=== PATIENT | female | born 1955 | race Caucasian/White ===

== ENCOUNTER 2019-08-17 09:45 | Emergency (ER) | payer MEDICARE, OTHER ==
[2019-08-17 10:13] VITALS: BP 149/81; BMI 32.5
[2019-08-17] MEDS ORDERED: ACETAMINOPHEN 325 MG TABLET (FP) PO ONE (10:19)
[2019-08-17 11:01] VITALS: PULSE 112; TEMP 99.3
--- NOTE | 2019-08-17 11:01 | PDOC ---
History of Present Illness - General Chief Complaint: Cold Symptoms Stated Complaint: SORE THROAT/COUGH/WEAKNESS Time Seen by Provider: 08/17/19 10:10 History Source: Patient Exam Limitations: No Limitations Past History - Past Medical History Allergies/Adverse Reactions: Allergies Allergy/AdvReac Type Severity Reaction Status Date / Time No Known Allergies Allergy Verified 08/17/19 10:01 Home Medications: Ambulatory Orders NK [No Known Home Medication] 08/17/19 COPD: No - Psycho Social/Smoking Cessation Hx Smoking History: Never smoked *Physical Exam - Vital Signs Last Vital Signs Temp Pulse Resp BP Pulse Ox 99 F 125 H 18 149/81 99 08/17/19 10:03 08/17/19 10:03 08/17/19 10:03 08/17/19 10:03 08/17/19 10:03 - Physical Exam General Appearance: No: Apparent Distress HEENT: positive: Normal ENT Inspection. negative: Muffled/Hoarse voice, Pharyngeal Erythema, Tonsillar Exudate, Tonsillar Erythema, Nasal Congestion, Rhinorrhea, Sinus Tenderness Respiratory/Chest: positive: Lungs Clear, Normal Breath Sounds. negative: Respiratory Distress Cardiovascular: positive: Regular Rhythm, Regular Rate, S1, S2. negative: Murmur Gastrointestinal/Abdominal: positive: Normal Bowel Sounds, Soft. negative: Tender, Distended, Guarding, Rebound Extremity: positive: Other (FROM of R shoulder, R elbow and R wrist, no deformity, no ecchymosis) Neurologic: positive: Alert, Normal Mood/Affect ED Treatment Course - RADIOLOGY Radiology Studies Ordered: Category Date Time Status ELBOW-RIGHT [RAD] Stat Radiology 08/17/19 10:18 Completed - Medications Given in the ED: ED Medications Discontinued Medications Generic Name Dose Route Start Last Admin Trade Name Freq PRN Reason Stop Dose Admin Acetaminophen 975 mg 08/17/19 10:19 08/17/19 10:29 Tylenol - PO 08/17/19 10:20 975 mg ONCE ONE Administration Medical Decision Making - Medical Decision Making 64 y/o F with no sig pmh presents with dry cough, rhinorrhea, throat pain from yesterday. Denies fever, sob, cp, abd pain, n/v/d, urinary complaints. Patient' s grandson also with viral URI sxs. Did not take any antipyretics today. Patient also had mechanical fall yesterday; patient slipped on something in the dark in the house and fell on R side; is c/o R elbow pain. Denies head/neck trauma, LOC, other injuries Patient appears well - likely viral URI S/P mechanical fall - R elbow xray negative Stable for dc 08/17/19 10:55 Discharge - Discharge Information Problems reviewed: Yes Clinical Impression/Diagnosis: Viral URI Fall Qualifiers: Encounter type: initial encounter Qualified Code(s): W19.XXXA - Unspecified fall, initial encounter Condition: Stable Disposition: HOME - Admission No - Additional Discharge Information Prescription Drug Monitoring Program (I-STOP) results: I-STOP not reviewed - Follow up/Referral - Patient Discharge Instructions Patient Printed Discharge Instructions: DI for Viral Upper Respiratory Infection -- Adult, DI for Elbow Pain Additional Instructions: Thank you for choosing [facility]. It was a pleasure taking care of you. Likely you have viral infection Recommend rest, staying hydrated (at least 2L of water daily) Your xray was negative for fracture. Take Tylenol as needed for pain Follow-up with your doctor in 2 days Return to the Emergency Department if your symptoms worsen or persist or have other concerning symptoms. - Post Discharge Activity
== END 2019-08-17 11:02 | disposition home or self-care (01) ==
LOC: JER 09:45
DX: J06.9 Acute upper respiratory infection, unspecified (principal); B97.89 Other viral agents as the cause of diseases classified elsewhere; M25.521 Pain in right elbow; W01.0XXA Fall on same level from slipping, tripping and stumbling without subsequent striking against object, initial encounter; Y93.89 Activity, other specified; Y92.038 Other place in apartment as the place of occurrence of the external cause
CPT/HCPCS: 73070-TC-RT-FY; 99281-25